=== PATIENT | male | born 1955 | race Caucasian/White ===

== ENCOUNTER → 2019-03-07 | Outpatient (CLI) | payer OTHER ==
[~2019-03-07] MED LIST: ADULT LOW DOSE81 MG PO; AMBEREN; BENICAR; BENICAR PO; CO Q-10100 MG PO; COMPAZINE10 MG; EXCEDRIN ASA F1 EAC1 PO; FISHOIL PO; GLUTOSE GEL 1515 G1 PO; LIPITOR; LIPITOR20 MG PO; MULTIVITAMINS PO; PERCOCET 5-3251 EACH PO; PERCODAN TABLE1 EACH; PHENERGAN25 MG RE; PRILOSEC 20 MG20 MG PO; TRILIPIX45 MG; TRILIPIX45 MG PO; VITAMIN E600 UNIT PO; ZOFRAN4 MG PO
== END ==
LOC: CAT 09:17
DX: Z13.6 Encounter for screening for cardiovascular disorders (principal); E78.00 Pure hypercholesterolemia, unspecified; I25.10 Atherosclerotic heart disease of native coronary artery without angina pectoris

== ENCOUNTER → 2020-07-02 | Outpatient (CLI) | payer OTHER | LOC: SJCVCIMAG 07:45 | PROVIDERS: ATTEND Internal Medicine Cardiovascular Disease | DX: I35.8 Other nonrheumatic aortic valve disorders (principal); R00.2 Palpitations; R06.00 Dyspnea, unspecified; R53.83 Other fatigue; R07.89 Other chest pain; E78.5 Hyperlipidemia, unspecified; I10 Essential (primary) hypertension ==

== ENCOUNTER → 2020-09-10 | Outpatient (CLI) | payer OTHER | LOC: SJCVC 10:03 | PROVIDERS: ATTEND Internal Medicine Cardiovascular Disease | DX: R94.31 Abnormal electrocardiogram [ECG] [EKG] (principal); I11.9 Hypertensive heart disease without heart failure; R93.1 Abnormal findings on diagnostic imaging of heart and coronary circulation; E78.00 Pure hypercholesterolemia, unspecified; E11.9 Type 2 diabetes mellitus without complications; E78.1 Pure hyperglyceridemia; I35.0 Nonrheumatic aortic (valve) stenosis; Z82.49 Family history of ischemic heart disease and other diseases of the circulatory system; Z88.1 Allergy status to other antibiotic agents; Z79.84 Long term (current) use of oral hypoglycemic drugs; Z79.899 Other long term (current) drug therapy ==

== ENCOUNTER → 2021-06-10 | Outpatient (CLI) | payer OTHER | LOC: SJCVC 13:08 | PROVIDERS: ATTEND Internal Medicine Cardiovascular Disease | DX: R94.31 Abnormal electrocardiogram [ECG] [EKG] (principal); I11.9 Hypertensive heart disease without heart failure; R93.1 Abnormal findings on diagnostic imaging of heart and coronary circulation; I10 Essential (primary) hypertension; E78.00 Pure hypercholesterolemia, unspecified; E11.9 Type 2 diabetes mellitus without complications; I35.0 Nonrheumatic aortic (valve) stenosis; Z98.890 Other specified postprocedural states; Z79.82 Long term (current) use of aspirin; Z79.899 Other long term (current) drug therapy; Z79.84 Long term (current) use of oral hypoglycemic drugs; Z88.8 Allergy status to other drugs, medicaments and biological substances ==